=== PATIENT | male | born 1980 | race Hispanic/Latino ===

== ENCOUNTER 2021-07-20 19:56 | Emergency (ER) | payer SELFPAY ==
--- NOTE | 2021-07-20 20:22 | Emergency Department Report ---
ED ENT HPI - General Chief complaint: Sore Throat Stated complaint: SORE THROAT/HEADACHE Time Seen by Provider: 07/20/21 20:14 Source: patient Mode of arrival: Ambulatory Limitations: No Limitations - History of Present Illness Initial comments: Patient presents with left-sided sore throat intermittently for months. He states that sometimes he has a sore throat and sometimes he does not. He is not sure what is going on. The pain was worse today. He was having a hard time swallowing due to pain. He was able to swallow. He has no trouble breathing. He was not sure if he had developed an infection or exactly what was going on. There is no history of recent travel or trauma. He has had no sick contacts. Has not been out of the country. He has had no cough or fever. There is no vomiting or diarrhea. He has had no known exposure to coronavirus or the flu. He has not had a strep exposure. - Related Data Previous Rx's Medication Instructions Recorded Last Taken Type Penicillin V Potassium 500 mg PO TID #21 tab 07/20/21 Unknown Rx Prednisone [predniSONE 10 mg 10 mg PO .TAPER #1 07/20/21 Unknown Rx (6-Day Pack, 21 Tabs)] Allergies Allergy/AdvReac Type Severity Reaction Status Date / Time No Known Allergies Allergy Verified 07/20/21 20:03 ED Dental HPI - General Chief complaint: Sore Throat Stated complaint: SORE THROAT/HEADACHE Time Seen by Provider: 07/20/21 20:14 Source: patient Mode of arrival: Ambulatory Limitations: No Limitations - Related Data Previous Rx's Medication Instructions Recorded Last Taken Type Penicillin V Potassium 500 mg PO TID #21 tab 07/20/21 Unknown Rx Prednisone [predniSONE 10 mg 10 mg PO .TAPER #1 07/20/21 Unknown Rx (6-Day Pack, 21 Tabs)] Allergies Allergy/AdvReac Type Severity Reaction Status Date / Time No Known Allergies Allergy Verified 07/20/21 20:03 ED Review of Systems ROS: Stated complaint: SORE THROAT/HEADACHE Other details as noted in HPI Comment: All other systems reviewed and negative Constitutional: denies: fever Eyes: denies: eye pain ENT: as per HPI, throat pain Respiratory: denies: cough Cardiovascular: denies: chest pain Endocrine: denies: unexplained weight loss Gastrointestinal: denies: abdominal pain Genitourinary: denies: dysuria Musculoskeletal: denies: back pain Skin: denies: rash Neurological: denies: headache Hematological/Lymphatic: denies: easy bruising ED Past Medical Hx - Past Medical History Previous Medical History?: No - Family History Family history: no significant - Medications Home Medications: Home Medications Medication Instructions Recorded Confirmed Last Taken Type Penicillin V Potassium 500 mg PO TID #21 tab 07/20/21 Unknown Rx Prednisone [predniSONE 10 mg 10 mg PO .TAPER #1 07/20/21 Unknown Rx (6-Day Pack, 21 Tabs)] ED Physical Exam - General Limitations: No Limitations, Other (Pulse ox noted and normal) General appearance: alert, in no apparent distress - Head Head exam: Present: atraumatic, normocephalic - Eye Eye exam: Present: normal appearance, EOMI. Absent: scleral icterus - ENT ENT exam: Present: normal external ear exam, other (Patient has diffuse tonsillar hypertrophy with erythema and exudate. Left is greater than right. Uvula is midline.) - Neck Neck exam: Present: normal inspection, lymphadenopathy (Left). Absent: meningismus - Respiratory Respiratory exam: Present: normal lung sounds bilaterally, respiratory distress - Cardiovascular Cardiovascular Exam: Present: regular rate, normal rhythm - GI/Abdominal GI/Abdominal exam: Present: soft - Extremities Exam Extremities exam: Present: normal capillary refill - Back Exam Back exam: Present: full ROM - Neurological Exam Neurological exam: Present: alert, oriented X3, normal gait. Absent: motor sensory deficit - Psychiatric Psychiatric exam: Present: normal affect, normal mood - Skin Skin exam: Present: warm, dry ED Course Vital Signs 07/20/21 20:02 Temperature 98.8 F Pulse Rate 107 H Respiratory 18 Rate Blood Pressure 160/98 O2 Sat by Pulse 99 Oximetry - Reevaluation(s) Reevaluation #1: 07/20/21 20:29 Patient was discharged ED Medical Decision Making - Medical Decision Making Patient has a presentation that is consistent with tonsillitis. He does not have unilateral edema to the point that he has suspicion for abscess. There is no pointing. He has normal phonation. This could certainly progress to a peritonsillar abscess but he is not at that point yet. Patient will be treated symptomatically and empirically. He has been referred to PCP for follow-up and recheck. We have discussed ENT follow-up in addition. Critical Care Time: No Critical care attestation.: If time is entered above; I have spent that time in minutes in the direct care of this critically ill patient, excluding procedure time. ED Disposition Clinical Impression: Peritonsillar cellulitis Disposition: HOME / SELF CARE / HOMELESS Is pt being admited?: No Condition: Stable Instructions: Pharyngitis, Peritonsillar Cellulitis Additional Instructions: drink water. use salt water gargles. see a regular doctor. return for problems. Prescriptions: Penicillin V Potassium 500 mg PO TID #21 tab Prednisone [predniSONE 10 mg (6-Day Pack, 21 Tabs)] 10 mg PO .TAPER #1 Referrals: KIMBERLY HURLEY MD [Staff Physician] - 3-5 Days
[2021-07-20 20:48] VITALS: BP 136/96
== END 2021-07-20 20:44 | disposition home or self-care (01) ==
LOC: ED 19:56
DX: J36 Peritonsillar abscess (principal)
CPT/HCPCS: 99282